=== PATIENT | female | born 1995 | race Caucasian/White ===

== ENCOUNTER 2017-01-10 18:43 | Emergency (ER) | payer OTHER ==
[~2017-01-10] VITALS: Ht 139.7 cm; Wt 43.5 kg
[~2017-01-10 18:43] MED LIST: MULT-506 PO
[2017-01-10 18:54] VITALS: TEMP 37.2; Ht 139.7 cm; Wt 43.5 kg
[2017-01-10] MEDS ORDERED: KETOROLAC TROMETHAMINE 10 MG TAB PO STA ×2 (19:32→20:54)
[2017-01-10] MEDS ORDERED: ONDANSETRON 4MG OD TAB PO STA (19:32)
[2017-01-10] MEDS ORDERED: ACET-1311 PO (19:53)
--- NOTE | 2017-01-10 20:32 | DIAGNOSTIC IMAGING REPORT ---
SINGLE VIEW PELVIS CLINICAL HISTORY: Fall with low back pain. FINDINGS: An AP pelvic radiograph is obtained. No prior studies are available for comparison at the time of dictation. The skeletal structures are well mineralized. No fracture is seen in the hips or bony pelvis. The joint spaces of the hips are well-maintained. The sacroiliac joints are normal. The overlying soft tissues are within normal limits. There is a nonobstructed abdominal bowel gas pattern. IMPRESSION: Unremarkable radiographic assessment of the pelvis. Electronically signed by: Cruz Porter M.D. 01/10/2017 8:30 PM Dictated Date/Time: 01/10/2017 8:30 PM
--- NOTE | 2017-01-10 20:34 | DIAGNOSTIC IMAGING REPORT ---
LUMBAR SPINE 5 VIEWS CLINICAL HISTORY: Fall. Low back pain. FINDINGS: 5 views of the lumbar spine are correlated with CT scan of lumbar spine dated 09/12/2014. The skeletal structures are well mineralized. There is no radiographic evidence of fracture or malalignment. Vertebral body height and alignment are maintained. The transverse and spinous processes are intact. There is no evidence of spondylolysis. The intervertebral disc spaces are well-maintained. The visualized bony pelvis appears intact. Thickening of the right 12th rib is unchanged from previous. There is a nonobstructed abdominal bowel gas pattern. IMPRESSION: Unremarkable radiographic evaluation of the lumbosacral spine. Electronically signed by: Cruz Porter M.D. 01/10/2017 8:32 PM Dictated Date/Time: 01/10/2017 8:31 PM
[2017-01-10] MEDS ORDERED: KETO10TA PO (21:01)
[2017-01-10] MEDS ORDERED: METH4PAK PO (21:01)
[2017-01-10 21:25] VITALS: BP 110/67; PULSE 86; O2SAT 99
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
[2017-03-14] MEDS ORDERED: CITA20TA9 PO (15:06)
[2017-03-14] MEDS ORDERED: MELA1TAB48 PO (15:06)
[2017-05-01] MEDS ORDERED: RISP-32 PO (16:22)
[2017-05-01] MEDS ORDERED: CLON0.5T3 PO (16:22)
== END 2017-01-10 21:25 | disposition home or self-care (01) ==
LOC: C.EDB 18:44 → C.EDD 21:25
DX: M54.17 Radiculopathy, lumbosacral region (principal); W01.0XXA Fall on same level from slipping, tripping and stumbling without subsequent striking against object, initial encounter; R10.2 Pelvic and perineal pain; Y93.89 Activity, other specified; Y92.096 Garden or yard of other non-institutional residence as the place of occurrence of the external cause; F32.9 Major depressive disorder, single episode, unspecified; Z72.0 Tobacco use

== ENCOUNTER → 2017-05-24 | Day surgery (SDC) | payer OTHER ==
[2017-03-14 15:06] VITALS: BMI 22.0
[2017-05-01 16:22] VITALS: Ht 141 cm; Wt 45.5 kg
[~2017-05-24] VITALS: Ht 141 cm; Wt 45.5 kg
[~2017-05-24] MED LIST changes: +ACET-1311 PO; +BUPIVACAINE 0.25% 2.5MG/ML PF 10 ML VIAL ONE; +CITA20TA9 PO; +CLON0.5T3 PO; +IOPAMIDOL INJ 61% 15 ML VIAL ONE; +LIDOCAINE HCL 1% MPF 5 ML VIAL ONE; +MELA1TAB48 PO; -MULT-506 PO; +RISP-32 PO
--- NOTE | 2017-05-24 14:23 | History & Physical Bridge - SC ---
H&P Re-Evaluation Bridge Note: I have examined the patient, reviewed the History & Physical and in the interval since the performance of the History & Physical I have noted the following changes of clinical significance: No changes noted
--- NOTE | 2017-05-24 15:04 | Discharge Instructions ---
Discharge Instructions Date of Service May 24, 2017. Visit Reason for Visit: Sacroiliitis Discharge Discharge Diagnosis / Problem: low back pain Discharge Goals Goal(s): Decrease discomfort, Improve function Activity Recommendations Activity Limitations: resume your previous activity Anesthesia . Post Anesthesia Instructions: If you have had General Anesthesia or IV Sedation: * Do not drive today. * Resume driving when surgeon permits. * Do not make important decisions or sign legal documents today. * Call surgeon for: 1. Temperature elevations greater than 101 degrees F. 2. Uncontrollable pain. 3. Excessive bleeding. 4. Persistent nausea and vomiting. 5. Medication intolerance (nausea, vomiting or rash). * For nausea and vomiting use only clear liquids such as: tea, soda, bouillon until nausea subsides, then gradually increase diet as tolerated. * If you have any concerns or questions, call your surgeon's office. If physician is unavailable and it is an emergency, call 911 or go to the nearest emergency room. . Diet Recommendations Recommended Home Diet: resume previous diet Procedures Procedures Performed: RIGHT SACROILIAC JOINT INJECTION Pending Studies Studies pending at discharge: no Medical Emergencies . Who to Call and When: Medical Emergencies: If at any time you feel your situation is an emergency, please call 911 immediately. . Non-Emergent Contact Non-Emergency issues call your: Specialist . . "Provider Documentation" section prepared by Eh Bustillos. .
[2017-05-24 15:13] VITALS: BP 96/65; PULSE 66; TEMP 36.5; O2SAT 98
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
== END | disposition home or self-care (01) ==
LOC: X.SURG 13:57
PROVIDERS: ATTEND Physical Medicine & Rehabilitation
DX: M46.1 Sacroiliitis, not elsewhere classified (principal); F17.200 Nicotine dependence, unspecified, uncomplicated; Z79.899 Other long term (current) drug therapy

== ENCOUNTER 2017-06-13 14:38 | Emergency (ER) | payer OTHER ==
[~2017-06-13] VITALS: Ht 144.8 cm; Wt 43.5 kg
[2017-06-13 14:38] VITALS: Ht 144.8 cm; Wt 43.5 kg
[~2017-06-13 14:38] MED LIST changes: -BUPIVACAINE 0.25% 2.5MG/ML PF 10 ML VIAL ONE; -IOPAMIDOL INJ 61% 15 ML VIAL ONE; -LIDOCAINE HCL 1% MPF 5 ML VIAL ONE
[2017-06-13 14:59] VITALS: TEMP 36.5
[2017-06-13] MEDS ORDERED: SODIUM CHLORIDE 0.9% 1000ML 1,000 ML IV STA (15:10)
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
[2017-06-13 15:48] LABS: BASO % 0.1 %; BASO ABS # 0.01 K/uL (0-0.2); COMPLETE YES; EOS % 0.5 %; HEMATOCRIT 34.1 % (37-47); IG% 0.2 %; LYMPH % 14.7 %; MEAN CELL VOLUME 91.4 fL (80-100); MEAN CORPUSCULAR HEMOGLOBIN 31.6 pg (25-34); MEAN CORPUSCULAR HGB CONC 34.6 g/dl (32-36); MONO % 6.5 %; PLATELET COUNT 138 K/uL (130-400); RED BLOOD COUNT 3.73 M/uL (4.2-5.4); WHITE BLOOD COUNT 9.52 K/uL (4.8-10.8)
--- NOTE | 2017-06-13 15:59 | DIAGNOSTIC IMAGING REPORT ---
CHEST ONE VIEW PORTABLE HISTORY: 21 years-old Female EVALUATE ALTERED MENTAL STATUS/WEAKNESS acute altered mental status COMPARISON: None available TECHNIQUE: Portable upright AP view of the chest FINDINGS: Cardiac mediastinal and hilar silhouettes are within normal limits. No pneumothorax, pleural effusion, focal airspace consolidation or overt pulmonary edema. Bones of the chest are grossly intact. IMPRESSION: No acute cardiopulmonary process. The above report was generated using voice recognition software. It may contain grammatical, syntax or spelling errors. Electronically signed by: Saul Deluna M.D. 06/13/2017 3:57 PM Dictated Date/Time: 06/13/2017 3:57 PM
--- NOTE | 2017-06-13 16:07 | DIAGNOSTIC IMAGING REPORT ---
CT OF THE HEAD WITHOUT CONTRAST CLINICAL HISTORY: Altered mental status. Weakness. Syncope. COMPARISON STUDY: No previous studies for comparison. CT DOSE: 638.56 mGycm TECHNIQUE: Helical axial images of the head were obtained without IV contrast. Automated exposure control was utilized for the study. A dose lowering technique was utilized adhering to the principles of ALARA. FINDINGS: No acute intracranial hemorrhage, midline shift or mass effect is present. Ventricular system is normal. Basilar cisterns are patent. There are no extra-axial collections. Felix-white differentiation is maintained. There are no findings to suggest acute dural sinus thrombosis or acute territorial infarct. There are no calvarial fractures. Visualized portions of the sinuses and mastoid air cells are clear. IMPRESSION: No acute intracranial findings. Electronically signed by: Benson Mccurdy M.D. 06/13/2017 4:06 PM Dictated Date/Time: 06/13/2017 4:04 PM
[2017-06-13 16:08] LABS: ALT/SGPT 16 U/L (12-78); AST/SGOT 12 U/L (15-37); BLOOD UREA NITROGEN 18 mg/dl (7-18); BUN/CREATININE RATIO 24.2 (10-20); CALCIUM 8.4 mg/dl (8.5-10.1); CARBON DIOXIDE 26 mmol/L (21-32); CHLORIDE 104 mmol/L (98-107); CREATININE 0.76 mg/dl (0.60-1.20); GLUCOSE 120 mg/dl (70-99); POTASSIUM 3.4 mmol/L (3.5-5.1); SODIUM 138 mmol/L (136-145)
[2017-06-13 16:18] LABS: ALB/GLOB RATIO 1.5 (0.9-2); ALKALINE PHOSPHATASE 59 U/L (45-117); THYROID STIMULATING HORMONE 0.607 uIu/ml (0.300-4.500)
[2017-06-13 16:22] LABS: PREG INTERNAL NEGATIVE QC NEG CLEAR BACKGROUND; PREG INTERNAL POSITIVE QC POS CONTROL LINE
[2017-06-13 17:19] LABS: URINE APPEARANCE CLOUDY (CLEAR); URINE BILIRUBIN NEG (NEG); URINE COLOR DK YELLOW; URINE EPITHELIAL CELL AUTO >30 /lpf (0-5); URINE NITRITE NEG (NEG); URINE PH 5.5 (4.5-7.5); UROBILINOGEN NEG (NEG); ZZUR CULT IF INDIC CLEAN CATCH YES
[2017-06-13 17:20] LABS: MANUAL MICROSCOPIC REQUIRED? NO; REVIEW REQ? YES
[2017-06-13 17:47] LABS: BENZODIAZEPINE, URINE NEG (NEG); COCAINE,URINE NEG (NEG); PHENCYCLIDINE, URINE NEG (NEG)
[2017-06-13 18:07] LABS: URINE MUCUS PRESENT (NONE PRSENT)
[2017-06-13 18:16] VITALS: BP 115/55; PULSE 72; O2SAT 98
== END 2017-06-13 18:25 | disposition home or self-care (01) ==
LOC: C.EDB 14:38 → EDBD 14:38 → C.EDB 18:25
DX: R55 Syncope and collapse (principal); E86.0 Dehydration; F32.9 Major depressive disorder, single episode, unspecified; F17.200 Nicotine dependence, unspecified, uncomplicated; Z79.82 Long term (current) use of aspirin; Z88.2 Allergy status to sulfonamides; Z91.09 Other allergy status, other than to drugs and biological substances; Z80.9 Family history of malignant neoplasm, unspecified

== ENCOUNTER → 2017-12-06 | Outpatient (CLI) | payer OTHER ==
--- NOTE | 2017-12-06 17:57 | DIAGNOSTIC IMAGING REPORT ---
MRI LUMBAR SPINE W/O CONTRAST CLINICAL HISTORY: Low back pain with right leg radiculopathy. TECHNIQUE: Sagittal and axial T1, T2 and STIR images were obtained. COMPARISON STUDY: Conventional radiographic study dated 01/10/2017 OBSERVATIONS: The vertebral bodies and posterior elements appear intact. There is no abnormal bony signal present to suggest a marrow replacement process. L1-2: No disc protrusions or extrusions. No evidence of spinal canal or neural foraminal compromise. L2-3: No disc protrusions or extrusions. No evidence of spinal canal or neural foraminal compromise. L3-4: No disc protrusions or extrusions. No evidence of spinal canal or neural foraminal compromise. L4-5: No disc protrusions or extrusions. No evidence of spinal canal or neural foraminal compromise. L5-S1: No disc protrusions or extrusions. No evidence of spinal canal or neural foraminal compromise. The conus medullaris and cauda equina appear normal. There is mild fecal retention. There is a suspected left-sided hydrosalpinx IMPRESSION: 1. No disc herniations identified. No evidence of spinal or foraminal stenosis 2. Suspected left-sided hydrosalpinx Electronically signed by: Mathew Reyna M.D. 12/06/2017 5:56 PM Dictated Date/Time: 12/06/2017 5:51 PM
== END | disposition home or self-care (01) ==
LOC: C.MRI 16:34
PROVIDERS: ATTEND Physical Medicine & Rehabilitation
DX: M54.16 Radiculopathy, lumbar region (principal); Z88.2 Allergy status to sulfonamides